=== PATIENT | female | born 1965 | race Caucasian/White ===

== ENCOUNTER 2018-02-22 20:38 | Emergency (ER) | payer OTHER ==
[2018-02-22] MEDS ORDERED: ACETAMINOPHEN 500 MG TAB PO ONE (20:53)
[2018-02-22] MEDS ORDERED: IBUPROFEN 600 MG TAB PO ONE (20:53)
--- NOTE | 2018-02-22 20:57 | EDPHY ---
H & P Time Seen by Provider: 02/22/18 20:47 HPI/ROS: This patient explains that she was walking here in [place] on the street after injuring 2 beers with friends and she became startled by people on the street and started running. She tripped and fell striking her chin against that pavement with a laceration to her chin. She is also concerned that she may have a dental injury as she feels some mandibular pain on the left side. She is tearful and anxious on arrival. She admits that she has a background history of anxiety. She reports moderate bleeding from the chin laceration, abrasion to left hand and left knee that are mild. She has not take any medications prior to arrival in the incident occurred shortly prior to arrival. ROS: Constitutional: No complaints neuro: No generalized headache. No midline neck or back pain. Musculoskeletal: No extremity injuries Pulmonary: No chest wall pain Cardiovascular: No chest pain or heart palpitations prior to the fall. Integumentary: No other skin injuries 7 point ROS is otherwise negative. Past Medical/Surgical History: Anxiety Social History: Occasional alcohol including 2 beers prior to the fall today. No drug use. Smoking Status: Never smoked Physical Exam: Physical exam: Vital signs are initially notable for tachycardia 130s and hypertension. General: Patient is in no acute distress. HEENT: Patient has a 2 cm full who is laceration under the chin with mild bleeding. No foreign bodies and direct examination. She has a superficial abrasion to the bridge of her nose will but no underlying bony tenderness. Nares are clear bilaterally. Ears: Clear bilaterally with no hemotympanum. Oropharynx: No dental trauma except for tenderness to percussion to a left lower premolar with evidence of an Rojas class 1 fracture to that tooth she has tenderness the left TMJ and mild tenderness the mandible. No malocclusion. I am able to break a tongue depressor while she bites down on a and this does not cause mandibular pain. No intraoral lacerations. No alcohol halitosis. Eyes: Pupils are equal and reactive to light. Extraocular motions are intact. Optic fundi: Clear with no papilledema or hemorrhage. Neck: Trachea is midline with no stridor. The patient has no midline neck tenderness and retains a full range of motion without increase in pain. Lungs: Clear to auscultation bilaterally Cardiac: Regular rate and rhythm no murmur gallop or rub. Chest: Nontender. Abdomen: Soft nontender no organomegaly Back: Nontender Extremities: Atraumatic Neuro: GCS of 15. Cranial nerves II through XII intact. 3 out of 3 five- minute memory is intact. Cerebellar exam is normal as judged by symmetric rapid hand movements bilaterally. No pronator drift. No sensory or motor deficits are appreciated. Initial differential diagnosis: Chin laceration, minor head injury, dental fracture, TMJ strain, doubt mandibular fracture, anxiety Constitutional: Initial Vital Signs Temperature (C) 36.6 C 02/22/18 20:55 Heart Rate 132 H 02/22/18 20:55 Respiratory Rate 20 02/22/18 20:55 Blood Pressure 186/127 H 02/22/18 20:55 O2 Sat (%) 91 L 02/22/18 20:55 O2 Delivery Mode Room Air Allergies/Adverse Reactions: No Known Allergies Allergy (Unverified 02/22/18 20:54) Home Medications: Medication Instructions Recorded Aspirin [Aspirin 81mg (*)] 02/22/18 Sertraline HCl [Zoloft 50mg (*)] 02/22/18 MDM/Departure - MDM Procedures: The wound is 2 cm described physical exam. The wound was copiously irrigated with saline. The wound was explored for foreign bodies and none were found. The wound was prepped and draped in the normal sterile fashion. The wound was anesthetized using 1% plain lidocaine mixed 50 50 with 0.5% Marcaine without epi. The edges were reapproximated using 5 0 Prolene -6 running sutures with good hemostasis and cosmesis. The patient tolerated the procedure well. There were no complications. Medications Given: Discontinued Medications Acetaminophen (Tylenol) 1,000 mg PO EDNOW ONE Stop: 02/22/18 20:54 Last Admin: 02/22/18 20:59 Dose: 1,000 mg Ibuprofen (Motrin) 600 mg PO EDNOW ONE Stop: 02/22/18 20:54 Last Admin: 02/22/18 20:59 Dose: 600 mg ED Course/Re-evaluation: After ibuprofen, Tylenol, chin laceration repair and reassurance, the patient's tachycardia resolved. She had persistent hypertension did mention that she recently had a physical exam with her primary physician with normal pressure at that time. Discussion: Patient with chin laceration TMJ strain clinically was quite anxious when she arrived. I think that her anxiety is causing her hypertension currently. No red flag findings after workup. Not think she has significant head injury. Counseled the patient and her regarding wound care and regarding her TMJ strain in some detail answer other questions prior to discharge home. She understands need to return emergency department should she develop severe headache, confusion or other concerns. - Depart Disposition: Home, Routine, Self-Care Clinical Impression: dental fracture, Sprain and strain of temporomandibular joint Chin laceration Qualifiers: Encounter type: initial encounter Qualified Code(s): S01.81XA - Laceration without foreign body of other part of head, initial encounter Condition: Good Instructions: Facial Laceration (ED) Additional Instructions: Diagnosis: Chin laceration 2. Rojas class 1 dental fracture left lower premolar 3. TMJ strain 4. Abrasion Plan: Keep the wound clean and dry for the next day and half to 2 days then clean daily with warm soapy water each day. Return for suture removal in 5-7 days. Ibuprofen Tylenol for pain if needed Clean abrasions daily. Ice, ibuprofen Tylenol for jaw pain Soft diet until he follow up with her dentist for further evaluation. Return sooner if he develops redness, discharge from the wound or unbearable pain or other concerns. Referrals: Adrianna Courtney MD [Primary Care Provider] - As per Instructions
[2018-02-22 22:26] VITALS: BP 160/101
== END 2018-02-22 22:26 | disposition home or self-care (01) ==
LOC: CED 20:38
PROC: 0HQ1XZZ Repair Face Skin, External Approach (ICD-10-PCS; principal; 2018-02-22)
DX: S02.5XXA Fracture of tooth (traumatic), initial encounter for closed fracture (principal); S03.42XA Sprain of jaw, left side, initial encounter; S01.81XA Laceration without foreign body of other part of head, initial encounter; Z79.82 Long term (current) use of aspirin; W01.198A Fall on same level from slipping, tripping and stumbling with subsequent striking against other object, initial encounter; Y99.8 Other external cause status; Y93.02 Activity, running